=== PATIENT | female | born 1940 | race Caucasian/White ===

== ENCOUNTER 2022-04-22 | Outpatient (REF) | payer MEDICARE, MEDICAID, SELFPAY ==
--- NOTE | ~2022-04-22 | XR_ITS ---
EXAMINATION: BILATERAL HAND. CLINICAL INFORMATION: Pain left hand. COMPARISON: None TECHNIQUE: 3 views each hand. FINDINGS: Left hand: There is diffuse osteopenia. No visible acute fracture, dislocation or subluxation seen. There is mild loss of first carpometacarpal joint space with periarticular spurring. Also visualized is mild loss of PIP and DIP joint space. No visible acute fracture or dislocation seen. The soft tissues are normal. Right hand: There is diffuse osteopenia with loss of PIP and DIP joint space and first carpometacarpal joint space. No acute fracture, dislocation or loose body seen. No bony erosive changes the soft tissues are normal. XR/XR hand LT min 3V IMPRESSION: 1. Diffuse osteopenia. No visible acute fracture, dislocation or subluxation seen. 2. 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
--- NOTE | ~2022-04-22 | XR_ITS ---
EXAMINATION: BILATERAL HAND. CLINICAL INFORMATION: Pain left hand. COMPARISON: None TECHNIQUE: 3 views each hand. FINDINGS: Left hand: There is diffuse osteopenia. No visible acute fracture, dislocation or subluxation seen. There is mild loss of first carpometacarpal joint space with periarticular spurring. Also visualized is mild loss of PIP and DIP joint space. No visible acute fracture or dislocation seen. The soft tissues are normal. Right hand: There is diffuse osteopenia with loss of PIP and DIP joint space and first carpometacarpal joint space. No acute fracture, dislocation or loose body seen. No bony erosive changes the soft tissues are normal. XR/XR hand RT min 3V IMPRESSION: 1. Diffuse osteopenia. No visible acute fracture, dislocation or subluxation seen. 2. 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
== END 2022-04-22 00:01 | disposition home or self-care (01) ==
LOC: HO.HOSX
PROVIDERS: Visit Provider Orthopaedic Surgery
DX: M79.641 Pain in right hand (principal); M79.642 Pain in left hand
CPT/HCPCS: 73130

== ENCOUNTER → 2022-04-22 13:50 | Outpatient (BNVA) | payer MEDICARE, MEDICAID, SELFPAY | PROVIDERS: PCP Nurse Practitioner Community Health; Visit Provider Orthopaedic Surgery | DX: M18.12 Unilateral primary osteoarthritis of first carpometacarpal joint, left hand (principal); M18.11 Unilateral primary osteoarthritis of first carpometacarpal joint, right hand; M65.312 Trigger thumb, left thumb | CPT/HCPCS: 99202; J1100 ==